=== PATIENT | male | born 1995 | race Hispanic/Latino ===

== ENCOUNTER 2021-04-28 16:54 | Inpatient (IN) | payer OTHER, SELFPAY ==
[~2021-04-28] VITALS: Ht 177.8 cm; Wt 110.7 kg
[2021-04-28] MEDS ORDERED: ALBUTEROL 0.083% 2.5 MG/3 ML INH IH PRN ×3 (17:30→20:00)
[2021-04-28] MEDS ORDERED: PREDNISONE 20 MG TABLET PO ONE (17:30)
[2021-04-28] MEDS ORDERED: ACETAMINOPHEN WITH CODEINE 1 TAB TAB PO ONE (17:30)
[2021-04-28] MEDS ORDERED: AZITHROMYCIN 250 MG TABLET PO ONE ×2 (17:30→19:01)
[2021-04-28] MEDS ORDERED: CEFTRIAXONE 1G VIAL IVP ONE ×2 (17:30→19:11)
[2021-04-28 17:43] VITALS: BP 130/71
[2021-04-28 17:47] LABS: ABG BASE EXCESS 1.2 mmol/L (-2.0-3.0); ABG HCO3 25.3 mmol/L (21.0-28.0); ABG OXYGEN SATURATION 92.2 % (95.0-99.0); ABG PCO2 38 mmHg (35-48)
[2021-04-28 18:27] LABS: BASOPHILS % (AUTO) 0.2 % (0.0-5.0); EOSINOPHILS % (AUTO) 0.2 % (0.0-8.0); HEMATOCRIT 44.2 % (42-54); MEAN CORPUSCULAR HEMOGLOBIN 30.4 pg (27.0-33.0); MEAN CORPUSCULAR HGB CONC 34.2 g/dL (32.0-36.0); MEAN CORPUSCULAR VOLUME 89.1 fL (79-99); MONOCYTES % (AUTO) 3.5 % (3.0-13.0); NEUTROPHILS % (AUTO) 81.5 % (40.0-77.0); PLATELET COUNT (AUTO) 148 K/uL (130-400); RED BLOOD CELL COUNT(AUTO) 4.96 MIL/uL (4.50-6.20); RED CELL DISTRIBUTION WIDTH 12.4 % (11.0-15.5); WHITE BLOOD COUNT (AUTO) 4.9 K/uL (4.8-10.8)
[2021-04-28 18:44] LABS: CREATININE 1.2 mg/dL (0.5-1.5)
[2021-04-28 18:49] LABS: ALBUMIN 3.6 g/dL (3.5-5.0); BILIRUBIN,TOTAL 0.3 mg/dL (0.2-1.0); TOTAL PROTEIN, SERUM 7.9 g/dL (6.0-8.3)
[2021-04-28 18:53] LABS: B-TYPE NATRIURETIC PEPTIDE < 5 pg/mL (0-100)
[2021-04-28 18:56] VITALS: BP 124/82
[2021-04-28 19:06] LABS: CRP QUANTITATIVE 183.7 mg/L (0.00-9.0)
[2021-04-28] MEDS ORDERED: SOLU-MEDROL 125MG VIAL IVP ONE (19:11)
[2021-04-28] MEDS ORDERED: ALBUTEROL INHALER 90MCG/INH IH ONE (19:22)
[2021-04-28] MEDS ORDERED: ACETAMINOPHEN WITH CODEINE 1 TAB TAB ONE (19:41)
[2021-04-28] MEDS ORDERED: IPRATROPIUM 0.5 MG/2.5 ML INH IH PRN (20:00)
[2021-04-28] MEDS ORDERED: HYDROCODONE/ACETAMINOPHEN 5/325 MG TAB PO PRN (20:00)
[2021-04-28] MEDS ORDERED: LACTULOSE 20 GM/30 ML UDCUP PO PRN (20:00)
[2021-04-28] MEDS: AZITHROMYCIN 250 MG TABLET PO SCH (20:00)
[2021-04-28] MEDS ORDERED: MORPHINE 4 MG SYG IV PRN (20:00)
[2021-04-28] MEDS ORDERED: ERGOCALCIFEROL (VITAMIN D2) 50,000 UNIT CAPSULE PO ONE (20:00)
[2021-04-28] MEDS ORDERED: ERGOCALCIFEROL (VITAMIN D2) 50,000 UNIT CAPSULE ONE (21:14)
[2021-04-28] MEDS: CEFTRIAXONE 1G VIAL IVP SCH (21:22)
[2021-04-28] MEDS: DEXAMETHASONE SOD PHOSPHATE 4 MG/ML 1ML VIAL IVP SCH (21:22)
[2021-04-28] MEDS: FAMOTIDINE 20MG VIAL IV SCH (21:23)
[2021-04-28 22:08] VITALS: BP 120/78
[2021-04-28 23:59] VITALS: BP 103/58
[2021-04-29] VITALS (7 sets, daily range): BP systolic 108–153; BP diastolic 54–96
[2021-04-29] MEDS: LACTATED RINGERS 1000ML 1,000 ML IV SCH (00:12)
[2021-04-29 03:30] LABS: ABG BASE EXCESS -3.1 mmol/L (-2.0-3.0); ABG OXYGEN SATURATION 93.2 % (95.0-99.0); ABG PCO2 40 mmHg (35-48)
[2021-04-29 04:19] LABS: HEMATOCRIT 42.4 % (42-54); LYMPHOCYTES % (AUTO) 13.3 % (21.0-51.0); MEAN CORPUSCULAR HEMOGLOBIN 30.1 pg (27.0-33.0); MEAN CORPUSCULAR HGB CONC 34.2 g/dL (32.0-36.0); MONOCYTES % (AUTO) 2.6 % (3.0-13.0); NEUTROPHILS % (AUTO) 83.8 % (40.0-77.0); PLATELET COUNT (AUTO) 146 K/uL (130-400); RED BLOOD CELL COUNT(AUTO) 4.82 MIL/uL (4.50-6.20); RED CELL DISTRIBUTION WIDTH 12.4 % (11.0-15.5); WHITE BLOOD COUNT (AUTO) 3.5 K/uL (4.8-10.8)
[2021-04-29 04:34] LABS: ALBUMIN 3.3 g/dL (3.5-5.0); BILIRUBIN,TOTAL 0.2 mg/dL (0.2-1.0); CREATININE 1.1 mg/dL (0.5-1.5); POTASSIUM 4.6 mmol/L (3.5-5.1); TOTAL PROTEIN, SERUM 7.7 g/dL (6.0-8.3)
[2021-04-29 05:25] LABS: CRP QUANTITATIVE 209.8 mg/L (0.00-9.0)
[2021-04-29] MEDS: CEFTRIAXONE 1G VIAL IVP SCH ×2 (08:29→19:56)
[2021-04-29] MEDS: FAMOTIDINE 20MG VIAL IV SCH ×2 (08:29→19:56)
[2021-04-29] MEDS: ZINC SULFATE 220 CAPSULE PO SCH (08:29)
[2021-04-29] MEDS: ASCORBIC ACID 500 MG TAB PO SCH (08:29)
[2021-04-29] MEDS: ENOXAPARIN SODIUM 40 MG/0.4 ML SYRINGE SQ SCH (08:31)
[2021-04-29] MEDS: ACETAMINOPHEN 325 MG TAB PO PRN ×2 (16:04→22:04)
[2021-04-29] MEDS: DEXAMETHASONE SOD PHOSPHATE 4 MG/ML 1ML VIAL IVP SCH (19:56)
[2021-04-29] MEDS: AZITHROMYCIN 250 MG TABLET PO SCH (19:57)
[2021-04-30 03:58] VITALS: BP 153/75
[2021-04-30 04:16] LABS: BASOPHILS % (AUTO) 0.1 % (0.0-5.0); HEMATOCRIT 39.9 % (42-54); LYMPHOCYTES % (AUTO) 8.5 % (21.0-51.0); MEAN CORPUSCULAR HEMOGLOBIN 30.2 pg (27.0-33.0); MEAN CORPUSCULAR HGB CONC 33.6 g/dL (32.0-36.0); MEAN CORPUSCULAR VOLUME 90.1 fL (79-99); MONOCYTES % (AUTO) 4.8 % (3.0-13.0); NEUTROPHILS % (AUTO) 86.2 % (40.0-77.0); PLATELET COUNT (AUTO) 159 K/uL (130-400); RED BLOOD CELL COUNT(AUTO) 4.43 MIL/uL (4.50-6.20); RED CELL DISTRIBUTION WIDTH 12.6 % (11.0-15.5); WHITE BLOOD COUNT (AUTO) 8.1 K/uL (4.8-10.8)
[2021-04-30 04:30] LABS: ALBUMIN 2.9 g/dL (3.5-5.0); BILIRUBIN,TOTAL 0.3 mg/dL (0.2-1.0); CREATININE 0.9 mg/dL (0.5-1.5); CRP QUANTITATIVE 131.4 mg/L (0.00-9.0); POTASSIUM 4.9 mmol/L (3.5-5.1)
[2021-04-30 08:15] VITALS: BP 125/90
[2021-04-30] MEDS: ZINC SULFATE 220 CAPSULE PO SCH (08:48)
[2021-04-30] MEDS: FAMOTIDINE 20MG VIAL IV SCH ×2 (08:48→19:58)
[2021-04-30] MEDS: ASCORBIC ACID 500 MG TAB PO SCH (08:48)
[2021-04-30] MEDS: ENOXAPARIN SODIUM 40 MG/0.4 ML SYRINGE SQ SCH (08:48)
[2021-04-30] MEDS: CEFTRIAXONE 1G VIAL IVP SCH ×2 (08:48→19:59)
[2021-04-30] MEDS: LACTATED RINGERS 1000ML 1,000 ML IV SCH (10:49)
[2021-04-30 11:22] VITALS: BP 130/58
[2021-04-30] MEDS: ACETAMINOPHEN 325 MG TAB PO PRN (12:55)
[2021-04-30 16:35] VITALS: BP 121/59
[2021-04-30] MEDS: AZITHROMYCIN 250 MG TABLET PO SCH (19:58)
[2021-04-30] MEDS: DEXAMETHASONE SOD PHOSPHATE 4 MG/ML 1ML VIAL IVP SCH (19:59)
[2021-04-30 20:09] VITALS: BP 117/55
[2021-04-30 23:28] VITALS: BP 137/60
[2021-05-01] MEDS ORDERED: GUAIFENESIN-CODEINE 5 ML SYRUP ONE (01:55)
[2021-05-01] MEDS ORDERED: GUAIFENESIN-CODEINE 5 ML SYRUP PO PRN (02:00)
[2021-05-01 04:10] VITALS: BP 149/64
[2021-05-01 04:33] LABS: HEMATOCRIT 38.8 % (42-54); LYMPHOCYTES % (AUTO) 8.7 % (21.0-51.0); MEAN CORPUSCULAR HEMOGLOBIN 29.7 pg (27.0-33.0); MEAN CORPUSCULAR HGB CONC 33.2 g/dL (32.0-36.0); MEAN CORPUSCULAR VOLUME 89.2 fL (79-99); MONOCYTES % (AUTO) 4.1 % (3.0-13.0); NEUTROPHILS % (AUTO) 86.4 % (40.0-77.0); PLATELET COUNT (AUTO) 183 K/uL (130-400); RED BLOOD CELL COUNT(AUTO) 4.35 MIL/uL (4.50-6.20); RED CELL DISTRIBUTION WIDTH 12.7 % (11.0-15.5); WHITE BLOOD COUNT (AUTO) 6.6 K/uL (4.8-10.8)
[2021-05-01 04:55] LABS: ALBUMIN 2.7 g/dL (3.5-5.0); BILIRUBIN,TOTAL 0.3 mg/dL (0.2-1.0); CREATININE 0.8 mg/dL (0.5-1.5); CRP QUANTITATIVE 117.7 mg/L (0.00-9.0); POTASSIUM 4.3 mmol/L (3.5-5.1); TOTAL PROTEIN, SERUM 6.9 g/dL (6.0-8.3)
[2021-05-01] MEDS: FAMOTIDINE 20MG VIAL IV SCH (07:09)
[2021-05-01] MEDS: CEFTRIAXONE 1G VIAL IVP SCH (07:09)
[2021-05-01] MEDS: ASCORBIC ACID 500 MG TAB PO SCH (07:11)
[2021-05-01] MEDS: ZINC SULFATE 220 CAPSULE PO SCH (07:11)
[2021-05-01] MEDS: ENOXAPARIN SODIUM 40 MG/0.4 ML SYRINGE SQ SCH (07:11)
[2021-05-01 07:52] VITALS: BP 116/67
[2021-05-01] MEDS ORDERED: APIX2.5T PO (09:06)
[2021-05-01] MEDS ORDERED: DEXA6TAB PO (09:06)
== END 2021-05-01 10:30 | disposition home or self-care (01) | DRG 177 ==
LOC: EDH 16:54 → EDHIP 16:55 → 2AH 04-29 02:32
PROVIDERS: ADMIT Family Medicine; ATTEND Family Medicine
DX: U07.1 COVID-19 (principal); J12.82 Pneumonia due to coronavirus disease 2019; D68.69 Other thrombophilia; R04.2 Hemoptysis; R09.02 Hypoxemia; F17.210 Nicotine dependence, cigarettes, uncomplicated
CPT/HCPCS: 36415; 36600; 71045; 80053; 82803; 82948; 83605; 83880; 85025; 85378; 86140; 87040; 87635; 87804; 94760; A4606; C9803; G0378; J0696; J1100; J1650; J3490; J7120